=== PATIENT | male | born 2000 | race Caucasian/White ===

== ENCOUNTER 2023-11-19 12:05 | Emergency (ER) | payer OTHER ==
[~2023-11-19] VITALS: Ht 172.7 cm; Wt 80.0 kg
[2023-11-19] MEDS: SODIUM CHLORIDE 0.9% 1,000 ML IV ONE (12:30)
[2023-11-19] MEDS: ACETAMINOPHEN 500 MG TABLET PO ONE (12:30)
[2023-11-19] MEDS: ONDANSETRON HCL 4 MG/2 ML VIAL IVP ONE (12:31)
[2023-11-19 12:35] VITALS: TEMP 97.6
[2023-11-19 12:58] LABS: BASOPHILS % (AUTO) 0.6 % (0.0-2.0); EOSINOPHILS % (AUTO) 0.8 % (1.0-6.0); HEMATOCRIT 45.5 % (41-53); HEMOGLOBIN 15.8 g/dL (13.5-17.5); LYMPHOCYTES # (AUTO) 1.5 K/uL (1.0-4.8); LYMPHOCYTES % (AUTO) 22.5 % (22.0-44.0); MEAN CORPUSCULAR HEMOGLOBIN 30.9 pg (26.0-34.0); MEAN CORPUSCULAR HGB CONC 34.7 G/dL (31.0-37.0); MEAN CORPUSCULAR VOLUME 89 fL (80-100); MONOCYTES # (AUTO) 0.4 K/uL (0.1-1.0); MONOCYTES % (AUTO) 5.1 % (2.0-9.0); NEUTROPHILS # (AUTO) 4.9 K/uL (1.8-7.7); PLATELET COUNT (AUTO) 151 K/uL (150-450); RED CELL DISTRIBUTION WIDTH 12.5 % (11.5-14.5); WHITE BLOOD COUNT (AUTO) 6.8 K/uL (4.5-11.0)
[2023-11-19 13:01] LABS: ANION GAP 11 mmol/L (8-16); CALCIUM, TOTAL 8.7 mg/dL (8.8-10.5); CARBON DIOXIDE 24 mmol/L (22-29); CHLORIDE 105 mmol/L (98-107); CREATININE 0.93 mg/dL (0.60-1.30); GLOMERULAR FILTR. RATE CALC > 60 mL/min (>60); GLUCOSE,RANDOM 82 mg/dL (70-110); POTASSIUM 3.7 mmol/L (3.5-5.1); SODIUM SERUM 140 mmol/L (136-145); UREA NITROGEN, BLOOD 15 mg/dL (7-18)
[2023-11-19] MEDS: BACITRACIN 0.9 GM PACKET OINTMENT TP ONE (13:45)
[2023-11-19] MEDS: LIDOCAINE 1% 10 ML VIAL SQ ONE (13:45)
[2023-11-19 14:24] VITALS: BP 114/68; PULSE 66; RESP 16
== END 2023-11-19 15:30 | disposition home or self-care (01) ==
LOC: EMS 12:09
DX: S61.213A Laceration without foreign body of left middle finger without damage to nail, initial encounter (principal); W26.0XXA Contact with knife, initial encounter; Y93.89 Activity, other specified; Y92.89 Other specified places as the place of occurrence of the external cause; Y99.8 Other external cause status
CPT/HCPCS: 99283; 96374; 96361; 80048; 85025; 36415; 93005; 12001; J2405; J3490; J7030